=== PATIENT | female | born 2000 | race Caucasian/White ===

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

== ENCOUNTER 2023-12-02 15:56 | Emergency (ER) | payer MEDICAID ==
[2023-12-02 16:33] VITALS: O2SAT 98
[2023-12-02] MEDS: KETOROLAC 30 MG/ML VIAL IM STA (16:59)
[2023-12-02] MEDS: ACETAMINOPHEN 325 MG TABLET PO STA (17:00)
--- NOTE | 2023-12-02 17:18 | ED Physician Documentation ---
PD HPI BACK PAIN - Stated complaint Stated Complaint: LOW BACK PX/STIFF - Chief complaint Chief Complaint: Back Pain - Additional information Additional information: 23-year-old male with no pertinent past medical history [facility]. Patient says that she was squatting to get a pedicure and felt a sharp jolt of pain to her lower back. Immediately after she had a brief episode of nausea no vomiting. Since then she has not taken any Tylenol ibuprofen she called her primary care provider to see if she can get in with them but unfortunately they were unable to get her in today and so they sent her to the emergency department. She has no history of IV drug use no urinary or stool incontinence. No recent fevers or chills no dysuria or CVA tenderness. PD PAST MEDICAL HISTORY - Past Medical History Past Medical History: Yes Psych: Depression, Anxiety, Bipolar disorder - Past Surgical History Past Surgical History: Yes HEENT: Other - Present Medications Home Medications: Ambulatory Orders Medication Instructions Recorded Confirmed Lurasidone HCl 20 mg PO DAILY 12/02/23 12/02/23 Norethindrone-E.estradiol-Iron 1 each PO DAILY 12/02/23 12/02/23 [Angeline 24 Fe 1 mg-20 Mcg Tablet] Valproic Acid 250 mg PO DAILY 12/02/23 12/02/23 - Allergies Allergies/Adverse Reactions: Allergies Allergy/AdvReac Type Severity Reaction Status Date / Time No Known Drug Allergies Allergy Verified 12/02/23 16:00 - Social History Does the pt smoke?: No Smoking Status: Never smoker Does the pt drink ETOH?: Yes Does the pt have substance abuse?: Yes - Immunizations Immunizations are current?: Yes - POLST Patient has POLST: No PD ED PE NORMAL - Vitals Vital signs reviewed: Yes - General General: Alert and oriented X 3, No acute distress, Well developed/nourished - HEENT HEENT: Atraumatic, PERRL - Free text exam Free text exam: Neck and back are without deformity, external skin changes, or signs of trauma. Curvature of the cervical, thoracic, and lumbar spine are within normal limits. Bony features of the shoulders and hips are of equal height bilaterally. Posture is upright, gait is smooth, steady, and within normal limits. No tenderness noted on palpation of the spinous processes. Spinous processes are midline. Cervical, thoracic, and lumbar paraspinal muscles are not tender and are without spasm. No discomfort is noted with flexion, extension, and [id number] rotation of the cervical spine, full range of motion is noted. Full range of motion including flexion, extension, and [id number] rotation of the thoracic and lumbar spine are noted and without discomfort. Straight leg raise test is negative bilaterally. Sensation to the upper and lower extremities is normal bilaterally. No clonus is noted. Quarrying Manager strength is normal bilaterally. Dorsi/plantar flexion is normal bilaterally. Results - Vitals Vitals: Vital Signs - 24 hr 12/02/23 12/02/23 16:00 17:23 Temperature 36.5 C Heart Rate 69 65 Respiratory 16 16 Rate Blood Pressure 138/76 H 133/75 H O2 Saturation 98 98 Oxygen O2 Source Room air PD Medical Decision Making - ED course ED course: This patient presents with back pain most consistent with lumbago. Differential diagnoses includes lumbago versus musculoskeletal spasm / strain versus sciatica. Less likely sciatica as straight leg raise test was negative. No back pain red flags on history or physical. Presentation not consistent with malignancy (lack of history of malignancy, lack of B symptoms), fracture (no trauma, no bony tenderness to palpation), cauda equina (no bowel or urinary incontinence/retention, no saddle anesthesia, no distal weakness), AAA, viscus perforation, osteomyelitis or epidural abscess (no IVDU, vertebral tenderness), renal colic, pyelonephritis (afebrile, no CVAT, no urinary symptoms). Given the clinical picture, no indication for imaging at this time. Patient was given a shot of Toradol in the emergency department as well as some Tylenol and is reports that she feels significant treatment of symptoms and pain. She was offered a work note but declined at this time and said that she is feeling a lot better understands going home to stay active and keep moving follow-up with primary care provider for possible physical therapy referral. Departure - Departure Disposition: 01 Home, Self Care Clinical Impression: Low back pain Qualifiers: Chronicity: acute Back pain laterality: midline Sciatica presence: without sciatica Qualified Code(s): M54.50 - Low back pain, unspecified Instructions: ED Back Care Tips, ED Low Back Pain Injury Comments: Thank you for trusting us with your care. We have given you a ketorolac shot as well as some Tylenol to help with your lower back pain. Going home as we discussed it is very important that you continuing to move around. I would also apply 20 minutes of ice to your affected area 20 minutes on 1 hour off continuously throughout the day and make sure that you are continuing to move around frequently. You can continue with 1000 mg of Tylenol every 8 hours and 500 mg of Aleve every 12 hours. Please come back to the emergency department if you are noticing any severe worsening pain, urinary or bowel incontinence, fevers or chills, or any other concerning symptoms. Follow-up with your primary care provider to see if you may need a physical therapy referral to help with some core strengthening exercises to prevent from this happening again. Wishing you a speedy recovery. Discharge Date/Time: 12/02/23 17:25
[2023-12-02 17:31] VITALS: BP 133/75
== END 2023-12-02 17:25 | disposition home or self-care (01) ==
LOC: ED 15:56
DX: M54.50 Low back pain, unspecified (principal); Z79.899 Other long term (current) drug therapy; Z79.3 Long term (current) use of hormonal contraceptives
CPT/HCPCS: 96372; 99283; A9270

== ENCOUNTER 2024-03-01 08:00 | Outpatient (CLI) | payer MEDICAID | END 2024-03-01 23:59 | disposition home or self-care (01) | LOC: LAB.N 08:00 | PROVIDERS: ATTEND Physician Assistant | DX: J02.9 Acute pharyngitis, unspecified (principal) | CPT/HCPCS: 87070 ==